=== PATIENT | female | born 1960 | race Caucasian/White ===

== ENCOUNTER → 2017-05-07 | Outpatient (CLI) | payer BC | LOC: M WHC 14:37 | DX: Z12.31 Encounter for screening mammogram for malignant neoplasm of breast (principal) | CPT/HCPCS: G0202 ==

== ENCOUNTER → 2017-05-07 | Outpatient (REF) | payer BC | LOC: M SFHCWAGY 15:09 | DX: Z12.4 Encounter for screening for malignant neoplasm of cervix (principal) | CPT/HCPCS: G0123 ==

== ENCOUNTER → 2018-05-08 | Outpatient (REF) | payer BC ==
[2018-05-14 14:13] LABS: HPV HYBRID CAPTURE II Negative (Negative)
== END ==
LOC: M SFHCWAGY 13:33
PROVIDERS: ATTEND Nurse Practitioner Family
DX: Z12.4 Encounter for screening for malignant neoplasm of cervix (principal)
CPT/HCPCS: 87624; G0123

== ENCOUNTER → 2018-05-18 | Outpatient (CLI) | payer BC ==
--- NOTE | 2018-05-18 14:33 | REP ---
DIGITAL DIAGNOSTIC BILATERAL MAMMOGRAPHY WITH CAD, 3D MAMMOGRAPHY, AND FOCUSED RIGHT BREAST SONOGRAPHY: History: Right breast lump times 2 weeks at 11- o'clock position. History of benign biopsies bilaterally. Comparison prior mammography May 07, 2017, May 03, 2016, and May 02, 2015. MAMMOGRAPHIC FINDINGS: A skin marker is affixed to the skin at the site of the palpable lump which projects high and laterally in the right axilla. There is a normal appearing stable lymph node in the right axilla. There is a similar sized fat replaced stable lymph node on the left. There is a needle biopsy marker clip again noted inferiorly in the right breast unchanged. No spiculation, neodensity, architectural distortion, microcalcification or worrisome skin change is seen in either breast. SONOGRAPHIC FINDINGS: The right breast is scanned from 10-o'clock position to 12-o'clock position through the area of the palpable abnormality and the axillary tail. Heterogeneous fibroglandular background echotexture is seen. No cyst is seen. No mass or acoustic shadowing is observed. IMPRESSION: BI-RADS/ACR category 2 mammogram. Benign finding(s). Routine annual screening mammography (for women over age 40). This negative report should not dissuade one from biopsy of a palpable lump depending on its clinical characteristics. Clinical follow-up is advised. This mammogram was interpreted with the aid of an FDA-approved computer-aided detection system. The patient states she had a clinical breast exam in April 2018. The patient letter being requested is M2. This patient's estimated Tyrer-zick lifetime risk assessment for the breast cancer is 14 %. Electronically Signed by Jorge Alejandro MD 05/18/2018 07:28 P
== END ==
LOC: M RAD 10:36
PROVIDERS: ATTEND Nurse Practitioner Family
DX: N63.10 Unspecified lump in the right breast, unspecified quadrant (principal); R92.8 Other abnormal and inconclusive findings on diagnostic imaging of breast
CPT/HCPCS: 76642; 77066; G0279

== ENCOUNTER → 2019-02-24 | Outpatient (REF) | payer BC ==
[2019-02-24 18:34] LABS: INFLUENZA A AMPLIFICATION NEGATIVE (NEGATIVE); INFLUENZA B AMPLIFICATION NEGATIVE (NEGATIVE)
== END ==
LOC: M LAB REF 16:48
PROVIDERS: ATTEND Registered Nurse
DX: R50.9 Fever, unspecified (principal)

== ENCOUNTER → 2019-05-11 | Outpatient (REF) | payer BC | LOC: M PLALAB 11:32 | PROVIDERS: ATTEND Nurse Practitioner Family | DX: Z12.4 Encounter for screening for malignant neoplasm of cervix (principal) ==

== ENCOUNTER → 2020-12-12 | Outpatient (CLI) | payer BC ==
[~2020-12-12] MED LIST: METHACHOLINE KIT (J7674) INH ONE
== END ==
LOC: M CARPUL 09:51
PROVIDERS: ATTEND Nurse Practitioner Adult Health
DX: R06.02 Shortness of breath (principal); R91.8 Other nonspecific abnormal finding of lung field
CPT/HCPCS: 71046; 94070; J7674

== ENCOUNTER → 2021-01-25 | Outpatient (CLI) | payer BC ==
--- NOTE | 2021-01-26 07:05 | REP ---
INDICATION: ABN FINDING OF LUNG FIELD COMPARISON: X-ray dated 12/12/2020 TECHNIQUE: Axial noncontrast images from the thoracic inlet to the upper abdomen with coronal and sagittal reformations. This CT examination was performed using the following dose reduction techniques: Automated exposure control, adjustment of mA and/or kv according to the patient's size, and use of iterative reconstruction technique. FINDINGS: The bilateral lung johnson are relatively well aerated. Very minimal right apical and posterior subpleural suspected scarring is identified which may represent the findings on x-ray. No acute consolidation, further suspicious nodule or mass. No effusion. No pneumothorax. Tracheobronchial tree is patent. No axillary, hilar, or mediastinal adenopathy. Thoracic aorta, pulmonary vasculature, and heart/pericardium are normal. Surrounding musculoskeletal structures are intact. Limited upper abdomen demonstrates normal bilateral adrenal glands. IMPRESSION: Suspicious findings on recent x-ray likely correspond to subtle right apical and posterior subpleural scarring. No acute mediastinal or pleuroparenchymal process otherwise appreciated. <Electronically signed by Isra Calixto > 01/26/21 0701
== END ==
LOC: M RAD 09:25
PROVIDERS: ATTEND Nurse Practitioner Adult Health
DX: R91.8 Other nonspecific abnormal finding of lung field (principal)

== ENCOUNTER → 2021-04-10 | Outpatient (REF) | payer BC | LOC: M SFHCWAGY 11:49 | PROVIDERS: ATTEND Advanced Practice Midwife | DX: Z12.4 Encounter for screening for malignant neoplasm of cervix (principal) ==

== ENCOUNTER → 2021-07-18 | Outpatient (CLI) | payer BC | LOC: M WHC 11:30 | PROVIDERS: ATTEND Registered Nurse | DX: R10.2 Pelvic and perineal pain (principal); M54.50 Low back pain, unspecified; D25.2 Subserosal leiomyoma of uterus; D25.1 Intramural leiomyoma of uterus ==

== ENCOUNTER → 2021-07-18 | Outpatient (REF) | payer BC ==
[2021-07-18 13:56] LABS: GC DNA AMPLIFICATION NEGATIVE (NEGATIVE)
== END ==
LOC: M LAB REF 11:14
PROVIDERS: ATTEND Registered Nurse
DX: N39.0 Urinary tract infection, site not specified (principal); R10.2 Pelvic and perineal pain

== ENCOUNTER → 2021-10-09 | Outpatient (CLI) | payer BC | LOC: M PLAIMG 09:22 | PROVIDERS: ATTEND Physician Assistant Surgical | DX: M25.511 Pain in right shoulder (principal); M67.811 Other specified disorders of synovium, right shoulder; M19.012 Primary osteoarthritis, left shoulder; M65.811 Other synovitis and tenosynovitis, right shoulder ==

== ENCOUNTER → 2022-04-12 | Outpatient (CLI) | payer BC | LOC: M WUC 11:51 | PROVIDERS: ATTEND Family Medicine | DX: R07.81 Pleurodynia (principal) ==

== ENCOUNTER → 2023-10-02 | Outpatient (REF) | payer BC | LOC: M SFHCWAGY 10:17 | PROVIDERS: ATTEND Nurse Practitioner Family | DX: R10.2 Pelvic and perineal pain (principal) ==

== ENCOUNTER → 2023-12-02 | Outpatient (REF) | payer BC ==
[2023-12-04 14:47] LABS: HPV APTIMA Not Detected (Not Detected)
== END ==
LOC: M SFHCWAGY 11:05
PROVIDERS: ATTEND Nurse Practitioner Family
DX: Z12.4 Encounter for screening for malignant neoplasm of cervix (principal)
CPT/HCPCS: 87624; G0123

== ENCOUNTER → 2024-04-14 | Outpatient (REF) | payer BC ==
[2024-04-14 18:17] LABS: HEPATITIS B SURFACE ANTIBODY NEGATIVE (POSITIVE)
[2024-04-14 18:30] LABS: HEPATITIS B SURFACE ANTIGEN NEGATIVE (NEGATIVE)
[2024-04-14 18:50] LABS: HEPATITIS B CORE ANTIBODY IGM NEGATIVE (NEGATIVE); HEPATITIS C VIRUS ABY INDEX < 0.02 INDEX (<0.8)
[2024-04-16 16:53] LABS: ANA SCREEN, IFA NEGATIVE (NEGATIVE)
== END ==
LOC: M LAB REF 16:42
PROVIDERS: ATTEND Family Medicine
DX: R74.01 Elevation of levels of liver transaminase levels (principal)

== ENCOUNTER → 2024-05-27 | Outpatient (CLI) | payer BC | LOC: M RAD 09:33 | PROVIDERS: ATTEND Family Medicine | DX: R74.01 Elevation of levels of liver transaminase levels (principal) ==

== ENCOUNTER → 2024-08-20 | Outpatient (REF) | payer BC ==
[~2024-08-20] MED LIST changes: +CETI10CA13 PO; +FLUTISP; -METHACHOLINE KIT (J7674) INH ONE; +OMEP40CA5 PO; +QVAR40AE12 INH
== END ==
LOC: M LAB REF 12:08
PROVIDERS: ATTEND Family Medicine
DX: R74.01 Elevation of levels of liver transaminase levels (principal)

== ENCOUNTER → 2024-12-30 | Outpatient (REF) | payer BC | LOC: M SFHCWAGY 10:21 | PROVIDERS: ATTEND Nurse Practitioner Family | DX: R30.0 Dysuria (principal); N73.9 Female pelvic inflammatory disease, unspecified ==

== ENCOUNTER → 2025-02-23 | Outpatient (REF) | payer BC | LOC: M LAB REF 12:02 | PROVIDERS: ATTEND Family Medicine | DX: R30.0 Dysuria (principal) ==

== ENCOUNTER → 2025-03-14 | Outpatient (REF) | payer BC | LOC: M LAB REF 16:59 | DX: R30.0 Dysuria (principal) ==